=== PATIENT | male | born 1985 | race Two or more races ===

== ENCOUNTER 2021-11-07 13:36 | Emergency (ER) | payer BC ==
[2021-11-07] MEDS ORDERED: Sodium Chloride 0.9% 1,000 ML IV ONE (14:31)
[2021-11-07] MEDS ORDERED: Ondansetron 4 MG/2 ML SDV IVPUSH ONE (14:31)
[2021-11-07] MEDS ORDERED: Morphine 4 MG/ML VIAL IVPUSH ONE ×2 (14:31→17:27)
[2021-11-07] MEDS ORDERED: diphenhydrAMINE 50 MG/ML SDV IVPUSH ONE (15:04)
[2021-11-07] MEDS ORDERED: methylPREDNISolone Sodium Succinate 125 MG/2 ML SDV IVPUSH ONE (15:05)
[2021-11-07 15:44] LABS: CARBON DIOXIDE,CO2 28.3 mmol/L (21.0-32.0)
[2021-11-07] MEDS ORDERED: Iopamidol 755 MG/ML 500 ML Multipack Bottle IVPUSH ONE (16:54)
== END 2021-11-07 18:22 | disposition home or self-care (01) ==
LOC: MW.ED 13:36
DX: R93.5 Abnormal findings on diagnostic imaging of other abdominal regions, including retroperitoneum (principal); R10.12 Left upper quadrant pain; Z20.822 Contact with and (suspected) exposure to COVID-19; R11.2 Nausea with vomiting, unspecified; R05.9 Cough, unspecified; R19.7 Diarrhea, unspecified; R50.9 Fever, unspecified; Z88.8 Allergy status to other drugs, medicaments and biological substances
CPT/HCPCS: 36415; 74177; 80053; 83605; 83690; 85025; 87635; 96361; 96374; 96375; 99284; J1200; J2270; J2405; J2930; J7030; Q9967; U0002

== ENCOUNTER 2021-11-12 10:53 | Emergency (ER) | payer BC ==
[2021-11-12] MEDS ORDERED: Ondansetron 4 MG/2 ML SDV IVPUSH ONE (11:11)
[2021-11-12] MEDS ORDERED: HYDROmorphone 1 MG/ML Syringe IVPUSH ONE (11:11)
[2021-11-12] MEDS ORDERED: Sodium Chloride 0.9% 1,000 ML IV ONE (11:11)
[2021-11-12 11:56] LABS: CARBON DIOXIDE,CO2 26.1 mmol/L (21.0-32.0); POTASSIUM,K 4.3 mmol/L (3.5-5.1)
== END 2021-11-12 12:42 | disposition home or self-care (01) ==
LOC: MW.ED 10:53
DX: R10.12 Left upper quadrant pain (principal); R11.0 Nausea; R63.0 Anorexia; Z88.8 Allergy status to other drugs, medicaments and biological substances
CPT/HCPCS: 36415; 80053; 83690; 85025; 96361; 96374; 96375; 99284; J1170; J2405; J7030

== ENCOUNTER 2021-11-18 23:52 | Emergency (ER) | payer BC ==
[2021-11-19] MEDS ORDERED: Ondansetron 4 MG/2 ML SDV IVPUSH ONE (00:48)
[2021-11-19] MEDS ORDERED: HYDROmorphone 1 MG/ML Syringe IVPUSH ONE ×2 (00:48→02:17)
[2021-11-19] MEDS ORDERED: Sodium Chloride 0.9% 1,000 ML IV ONE (00:48)
[2021-11-19 01:29] LABS: CARBON DIOXIDE,CO2 28.2 mmol/L (21.0-32.0); POTASSIUM,K 3.5 mmol/L (3.5-5.1)
[2021-11-19] MEDS ORDERED: HYDROmorphone 2 MG/ML Syringe IVPUSH ONE (01:48)
[2021-11-19] MEDS ORDERED: HYDROmorphone 1 MG/ML Syringe ONE (02:13)
== END 2021-11-19 02:56 | disposition home or self-care (01) ==
LOC: MW.ED 23:52
DX: K86.9 Disease of pancreas, unspecified (principal); Z88.8 Allergy status to other drugs, medicaments and biological substances
CPT/HCPCS: 36415; 80053; 83690; 85025; 96374; 96375; 96376; 99284; J1170; J2405; J7030

== ENCOUNTER 2021-11-26 15:55 | Emergency (ER) | payer BC ==
[2021-11-26] MEDS ORDERED: Sodium Chloride 0.9% 10 ML Syringe FLUSH PRN (16:34)
[2021-11-26] MEDS ORDERED: Ondansetron 4 MG/2 ML SDV IVPUSH ONE (16:34)
[2021-11-26] MEDS ORDERED: Sodium Chloride 0.9% 2.5 ML Syringe FLUSH PRN (16:34)
[2021-11-26] MEDS ORDERED: Sodium Chloride 0.9% 1,000 ML IV ONE (16:34)
[2021-11-26 17:00] LABS: CARBON DIOXIDE,CO2 26.5 mmol/L (21.0-32.0); POTASSIUM,K 4.3 mmol/L (3.5-5.1)
[2021-11-26] MEDS ORDERED: HYDROmorphone 1 MG/ML Syringe IVPUSH ONE ×2 (17:17→18:12)
[2021-11-26] MEDS ORDERED: HYDROmorphone 1 MG/ML Syringe IVPUSH STA (19:04)
== END 2021-11-26 19:26 | disposition home or self-care (01) ==
LOC: MW.ED 15:55
DX: R10.12 Left upper quadrant pain (principal); R11.2 Nausea with vomiting, unspecified; F17.210 Nicotine dependence, cigarettes, uncomplicated; Z91.041 Radiographic dye allergy status; Z79.899 Other long term (current) drug therapy; Z90.49 Acquired absence of other specified parts of digestive tract
CPT/HCPCS: 36415; 80053; 85025; 96361; 96374; 96375; 96376; 99284; J1170; J2405; J3490; J7030

== ENCOUNTER 2021-12-03 12:29 | Emergency (ER) | payer BC ==
[2021-12-03] MEDS ORDERED: Sodium Chloride 0.9% 2.5 ML Syringe FLUSH PRN (13:10)
[2021-12-03] MEDS ORDERED: Sodium Chloride 0.9% 10 ML Syringe FLUSH PRN (13:10)
[2021-12-03] MEDS ORDERED: Ondansetron 4 MG/2 ML SDV IVPUSH ONE (13:28)
[2021-12-03] MEDS ORDERED: Sodium Chloride 0.9% 1,000 ML IV ONE (13:28)
[2021-12-03] MEDS ORDERED: HYDROmorphone 1 MG/ML Syringe IVPUSH ONE (13:28)
[2021-12-03 14:16] LABS: CARBON DIOXIDE,CO2 25.7 mmol/L (21.0-32.0); POTASSIUM,K 4.2 mmol/L (3.5-5.1)
[2021-12-03] MEDS ORDERED: HYDROmorphone 2 MG/ML Syringe IVPUSH ONE (14:39)
== END 2021-12-03 15:50 | disposition home or self-care (01) ==
LOC: MW.ED 12:29
DX: R10.12 Left upper quadrant pain (principal); K86.89 Other specified diseases of pancreas; Z91.041 Radiographic dye allergy status; Z90.49 Acquired absence of other specified parts of digestive tract
CPT/HCPCS: 36415; 80053; 81001; 83690; 85025; 96361; 96374; 96375; 96376; 99284; J1170; J2405; J3490; J7030